=== PATIENT | male | born 1990 | race Caucasian/White ===

== ENCOUNTER 2018-08-08 18:09 | Emergency (ER) | payer MEDICAID ==
[~2018-08-08] VITALS: Ht 177.8 cm; Wt 75.8 kg
[2018-08-08 18:26] VITALS: BP 137/84
[2018-08-08 18:57] LABS: BASOPHILS # (AUTO) 0.03 x10^3/uL (0-0.1); BASOPHILS % (AUTO) 0 % (0-1); EOSINOPHILS # (AUTO) 0.42 x10^3/uL (0-0.4); EOSINOPHILS % (AUTO) 5 % (1-7); LYMPHOCYTES # (AUTO) 1.55 x10^3/uL (1-3.4); LYMPHOCYTES % (AUTO) 18 % (22-44); MD NO; MEAN CORPUSCULAR HEMOGLOBIN 33.1 pg (27.5-34.5); MEAN CORPUSCULAR HGB CONC 34.6 g/dL (33.2-36.2); MEAN CORPUSCULAR VOLUME 95.5 fL (81-97); MEAN PLATELET VOLUME 8.6 fL (7.4-10.4); MONOCYTES # (AUTO) 0.57 x10^3/uL (0.2-0.8); MONOCYTES % (AUTO) 7 % (2-9); NEUTROPHILS # (AUTO) 6.05 x10^3/uL (1.8-6.8); NEUTROPHILS % (AUTO) 70 % (42-75); PLATELET COUNT 325 x10^3/uL (130-400); RED BLOOD COUNT 5.01 x10^6/uL (4.38-5.82); RED CELL DISTRIBUTION WIDTH 12.6 % (9.4-14.8)
== END 2018-08-08 19:27 | disposition home or self-care (01) ==
LOC: EDBD 18:09 → ED 19:21
DX: M77.51 Other enthesopathy of right foot and ankle (principal); F17.200 Nicotine dependence, unspecified, uncomplicated
CPT/HCPCS: 36415; 84550; 85025; 99285

== ENCOUNTER 2019-06-11 03:55 | Emergency (ER) | payer MEDICAID, OTHER ==
[2019-06-11 05:09] LABS: BASOPHILS # (AUTO) 0.03 x10^3/uL (0-0.1); BASOPHILS % (AUTO) 0 % (0-1); EOSINOPHILS # (AUTO) 0.17 x10^3/uL (0-0.4); EOSINOPHILS % (AUTO) 2 % (1-7); LYMPHOCYTES # (AUTO) 1.14 x10^3/uL (1-3.4); LYMPHOCYTES % (AUTO) 14 % (22-44); MD NO; MEAN CORPUSCULAR HGB CONC 33.4 g/dL (33.2-36.2); MEAN CORPUSCULAR VOLUME 98.8 fL (81-97); MEAN PLATELET VOLUME 8.7 fL (7.4-10.4); MONOCYTES # (AUTO) 0.49 x10^3/uL (0.2-0.8); MONOCYTES % (AUTO) 6 % (2-9); NEUTROPHILS # (AUTO) 6.35 x10^3/uL (1.8-6.8); NEUTROPHILS % (AUTO) 78 % (42-75); PLATELET COUNT 250 x10^3/uL (130-400); RED BLOOD COUNT 4.48 x10^6/uL (4.38-5.82)
[2019-06-11 05:13] LABS: ANION GAP 8 mmol/L (5-15); CALCIUM 8.4 mg/dL (8.5-10.1); CHLORIDE 106 mmol/L (98-107)
[2019-06-11 05:17] LABS: ALANINE AMINOTRANSFERASE 24 U/L (12-78); ALKALINE PHOSPHATASE 55 U/L (45-117); BILIRUBIN,TOTAL 0.8 mg/dL (0.2-1.0); CREATININE 1.09 mg/dL (0.7-1.3); TOTAL PROTEIN 7.3 g/dL (6.4-8.2)
[2019-06-11 05:25] VITALS: BP 118/59
--- NOTE | 2019-06-11 05:26 | NUR ---
PT ABLE TO AMBULATE TO RESTROOM FOR URINE SAMPLE. PT STATES HE FEELS BETTER AFTER FLUIDS.
[2019-06-11 05:38] LABS: MICROSCOPIC NOT IND
[2019-06-11 05:43] LABS: CULTURE INDICATED? NO
[2019-06-11] MEDS ORDERED: LORazepam 2 MG/ML, 1ML ONE (06:10)
[2019-06-11] MEDS ORDERED: LORazepam 2 MG/ML, 1ML IVPush ONE (06:30)
--- NOTE | 2019-06-11 06:30 | NUR ---
Patient/Caregiver given discharge instructions and they have confirmed that they understand the instructions. Patient ambulatory with steady gait.
== END 2019-06-11 06:42 | disposition home or self-care (01) ==
LOC: ED 05:35
DX: E86.0 Dehydration (principal); F41.1 Generalized anxiety disorder
CPT/HCPCS: 36415; 80053; 81003; 83690; 85025; 96374; 99283; J2060

== ENCOUNTER 2019-10-15 03:16 | Emergency (ER) | payer OTHER ==
[~2019-10-15] VITALS: Ht 175.3 cm; Wt 71.0 kg
[2019-10-15 03:19] VITALS: BP 131/74
[2019-10-15] MEDS ORDERED: FLUORESCEIN OPHTHALMIC 1 MG STRIP ONE (03:26)
[2019-10-15] MEDS ORDERED: PROPARACAINE OPHTH 0.5%, 15ML ONE (03:26)
== END 2019-10-15 04:13 | disposition home or self-care (01) ==
LOC: ED 04:00
DX: T26.12XA Burn of cornea and conjunctival sac, left eye, initial encounter (principal); T26.11XA Burn of cornea and conjunctival sac, right eye, initial encounter; Z77.098 Contact with and (suspected) exposure to other hazardous, chiefly nonmedicinal, chemicals; Z87.891 Personal history of nicotine dependence; Y92.89 Other specified places as the place of occurrence of the external cause
CPT/HCPCS: 99283

== ENCOUNTER 2020-02-20 12:48 | Emergency (ER) | payer OTHER ==
[~2020-02-20] VITALS: Ht 175.3 cm; Wt 71.0 kg
[2020-02-20 12:51] VITALS: BP 120/85
[2020-02-20 13:23] LABS: BASOPHILS # (AUTO) 0.03 x10^3/uL (0-0.1); BASOPHILS % (AUTO) 1 % (0-1); EOSINOPHILS % (AUTO) 2 % (1-7); LYMPHOCYTES # (AUTO) 1.38 x10^3/uL (1-3.4); LYMPHOCYTES % (AUTO) 23 % (22-44); MD NO; MEAN CORPUSCULAR VOLUME 97.1 fL (81-97); MEAN PLATELET VOLUME 8.3 fL (7.4-10.4); MONOCYTES % (AUTO) 8 % (2-9); NEUTROPHILS # (AUTO) 3.94 x10^3/uL (1.8-6.8); NEUTROPHILS % (AUTO) 66 % (42-75); PLATELET COUNT 300 x10^3/uL (130-400); RED CELL DISTRIBUTION WIDTH 12.5 % (9.4-14.8)
[2020-02-20 13:38] LABS: ALBUMIN 4.3 g/dL (3.4-5.0); CALCIUM 9.6 mg/dL (8.5-10.1); CREATININE 1.13 mg/dL (0.7-1.3)
[2020-02-20 13:43] LABS: ANION GAP 5 mmol/L (5-15); CHLORIDE 105 mmol/L (98-107)
[2020-02-20] MEDS ORDERED: DIAZEPAM 5 MG TABLET PO ONE (14:00)
--- NOTE | 2020-02-20 14:02 | NUR ---
PT BACK TO ROOM, DRESSED IN GOWN, LAYING IN BED, VSS, NO SIGNS OF DISTRESS.
[2020-02-20] MEDS ORDERED: DIAZEPAM 5 MG TABLET ONE (14:16)
[2020-02-20] MEDS ORDERED: PROP60TA PO (14:21)
--- NOTE | 2020-02-20 15:17 | NUR ---
ASSUMED CARE FOR DISCHARGE ONLY Patient/Caregiver given discharge instructions and they have confirmed that they understand the instructions. Patient ambulatory with steady gait.
== END 2020-02-20 15:26 | disposition home or self-care (01) ==
LOC: ED 15:20
DX: F41.1 Generalized anxiety disorder (principal); R06.4 Hyperventilation; R94.31 Abnormal electrocardiogram [ECG] [EKG]
CPT/HCPCS: 36415; 80048; 82040; 85025; 93005; 99284

== ENCOUNTER 2020-05-16 17:00 | Emergency (ER) | payer OTHER ==
[~2020-05-16] VITALS: Ht 175.3 cm; Wt 72.9 kg
[~2020-05-16 17:00] MED LIST: PROP60TA PO
[2020-05-16 17:25] VITALS: BP 122/65
--- NOTE | 2020-05-16 18:43 | NUR ---
CELL PHONE REPAIR TECHNICIAN; PT SIGNED AMA FORM
== END 2020-05-16 18:45 ==
LOC: ED 18:39
DX: R53.1 Weakness (principal); R25.1 Tremor, unspecified; R00.0 Tachycardia, unspecified; Z53.21 Procedure and treatment not carried out due to patient leaving prior to being seen by health care provider
CPT/HCPCS: 93005

== ENCOUNTER 2021-02-18 02:13 | Emergency (ER) | payer OTHER ==
[~2021-02-18] VITALS: Ht 175.3 cm; Wt 84.7 kg
[2021-02-18] MEDS ORDERED: SODIUM CHLORIDE 0.9% 1,000ML IVBOLUS ONE (02:30)
[2021-02-18] MEDS ORDERED: SODIUM CHLORIDE FLUSH 10ML SYR IVF ONE (02:30)
[2021-02-18] MEDS ORDERED: PANTOPRAZOLE 40 MG IV IVPush ONE (02:30)
[2021-02-18] MEDS ORDERED: ONDANSETRON 2MG/ML, 2ML IVPush ONE (02:30)
[2021-02-18] MEDS ORDERED: FAMOTIDINE 20 MG/2 ML IVPush ONE (02:30)
[2021-02-18] MEDS ORDERED: PANTOPRAZOLE 40 MG IV ONE (02:36)
[2021-02-18] MEDS ORDERED: ONDANSETRON 2MG/ML, 2ML ONE (02:36)
[2021-02-18] MEDS ORDERED: FAMOTIDINE 20 MG/2 ML ONE (02:37)
--- NOTE | 2021-02-18 02:48 | NUR ---
PT RESTING IN BED, VSS, NO COMPLAINTS AT THIS TIME, AWARE OF NEED FOR URINE
[2021-02-18 02:57] LABS: BASOPHILS % (AUTO) 1 % (0-1); EOSINOPHILS % (AUTO) 2 % (1-7); LYMPHOCYTES % (AUTO) 45 % (22-44); MEAN CORPUSCULAR HEMOGLOBIN 33.6 pg (27.5-34.5); MEAN CORPUSCULAR HGB CONC 34.7 g/dL (33.2-36.2); MEAN PLATELET VOLUME 8.2 fL (7.4-10.4); MONOCYTES % (AUTO) 7 % (2-9); NEUTROPHILS % (AUTO) 45 % (42-75); PLATELET COUNT 317 x10^3/uL (130-400); RED BLOOD COUNT 4.57 x10^6/uL (4.38-5.82); RED CELL DISTRIBUTION WIDTH 13.2 % (9.4-14.8)
[2021-02-18 03:08] LABS: ALANINE AMINOTRANSFERASE 99 U/L (12-78); ALBUMIN 3.8 g/dL (3.4-5.0); ANION GAP 9 mmol/L (5-15); CALCIUM 8.7 mg/dL (8.5-10.1); CHLORIDE 102 mmol/L (98-107); CREATININE 1.11 mg/dL (0.7-1.3)
[2021-02-18 03:10] LABS: ALKALINE PHOSPHATASE 75 U/L (45-117); BILIRUBIN,TOTAL 0.2 mg/dL (0.2-1.0); TOTAL PROTEIN 7.9 g/dL (6.4-8.2)
[2021-02-18] MEDS ORDERED: METOCLOPRAMIDE 5 MG/ML, 2ML IVPush ONE (03:30)
[2021-02-18] MEDS ORDERED: POTASSIUM CHLORIDE 20 MEQ TAB.ER.PRT PO ONE (03:30)
[2021-02-18] MEDS ORDERED: LORazepam 2 MG/ML, 1ML IVPush ONE (03:30)
[2021-02-18 03:37] LABS: MICROSCOPIC NOT IND
[2021-02-18] MEDS ORDERED: METOCLOPRAMIDE 5 MG/ML, 2ML ONE (03:40)
[2021-02-18] MEDS ORDERED: POTASSIUM CHLORIDE 20 MEQ TAB.ER.PRT ONE (03:40)
[2021-02-18] MEDS ORDERED: LORazepam 2 MG/ML, 1ML ONE (03:41)
[2021-02-18 04:08] VITALS: BP 110/39
== END 2021-02-18 04:13 | disposition home or self-care (01) ==
LOC: ED 04:11
DX: K29.21 Alcoholic gastritis with bleeding (principal); F10.120 Alcohol abuse with intoxication, uncomplicated; R11.2 Nausea with vomiting, unspecified; E87.6 Hypokalemia; K70.10 Alcoholic hepatitis without ascites
CPT/HCPCS: 36415; 80053; 80320; 81003; 83690; 85025; 93005; 96361; 96374; 96375; 99284; C9113; J2060; J2405; J2765; J7030; G0480